=== PATIENT | male | born 1960 | race Caucasian/White ===

== ENCOUNTER 2016-08-13 18:29 | Emergency (ER) | payer BC ==
[~2016-08-13] VITALS: Ht 193 cm; Wt 159.1 kg
[~2016-08-13 18:29] MED LIST: CLEOCIN HCL150 MG PO; DOXYCYCLINE 10100 MG PO; FUROSEMIDE; PRILOSEC20 MG PO; SEPTRA DS 8001 TAB PO; ZESTRIL10 MG PO
[2016-08-13 18:39] VITALS: BP 143/78; TEMP 98.8
[2016-08-13] MEDS ORDERED: CELEBREX 200MG200 MG PO (18:45)
[2016-08-13 20:06] LABS: BASO % 0.2 % (0.0-2.0); EOS % 0.3 % (0-4.0); GRAN # 9.6 (1.4-6.5); GRAN % 86.4 % (42.2-75.2); HEMATOCRIT 40.8 % (42.0-52.0); LYMPH # 0.9 (1.2-3.4); LYMPH % 7.9 % (20.0-51.0); MEAN CELL VOLUME 81 fl (80.0-100.0); MEAN CORPUSCULAR HEMOGLOBIN 26 pg (27.0-31.0); MEAN CORPUSCULAR HGB CONC 32 g/dl (33.0-37.0); MEAN PLATELET VOLUME 11.2 fl (7.4-10.4); MONO # 0.5 (0.1-0.6); MONO % 4.7 % (1.7-9.3); PLATELET COUNT 168 K/mm3 (130-400); RED BLOOD COUNT 5.07 M/mm3 (4.20-5.60); REDCELL DISTRIBUTION WIDTH-CV 15.7 % (11.5-14.5); WHITE BLOOD COUNT 11.2 K/mm3 (4.8-10.8)
[2016-08-13 20:19] LABS: PH 6 (5-8); SQUAMOUS EPITHELIAL None Seen /hpf; URINE APPEARANCE Hazy; URINE BACTERIA None Seen /hpf; URINE BILIRUBIN Negative (NEGATIVE); URINE BLOOD Negative (NEGATIVE); URINE COLOR Yellow; URINE GLUCOSE Negative (NEGATIVE); URINE KETONE Negative (NEGATIVE); URINE RBC 0-2 /hpf; URINE UROBILINOGEN Negative (NEGATIVE); URINE WBC 0-2 /hpf
[2016-08-13 20:21] LABS: ADJUSTED CALCIUM 8.6 mg/dL (8.4-10.2); BILIRUBIN,TOTAL 1.7 mg/dL (0.0-1.0); C-REACTIVE PROTEIN 3.2 mg/dL (0.0-0.9); CALCIUM 8.6 mg/dL (8.4-10.2); CREATININE, serum 1.07 mg/dL (0.66-1.25); TOTAL PROTEIN 7.9 gm/dL (6.4-8.2)
[2016-08-13 20:43] LABS: ERYTHROCYTE SEDIMENTATION RATE 16 mm/hr (0-30)
[2016-08-13 20:49] LABS: INFLUENZA B NEGATIVE
[2016-08-13] MEDS ORDERED: NORCO 325 MG-51 TAB PO (21:31)
[2016-08-13 22:32] VITALS: PULSE 65
== END 2016-08-13 22:45 | disposition home or self-care (01) ==
LOC: COL.ER 18:29
PROVIDERS: Emergency Medicine
DX: M54.5 Low back pain (principal); G89.29 Other chronic pain
CPT/HCPCS: J1885

== ENCOUNTER 2016-08-15 13:19 | Emergency (ER) | payer BC ==
[~2016-08-15] VITALS: Ht 193 cm; Wt 159.1 kg
[~2016-08-15 13:19] MED LIST changes: +CELEBREX 200MG200 MG PO; +NORCO 325 MG-51 TAB PO
[2016-08-15 13:23] VITALS: TEMP 98.4
[2016-08-15] MEDS ORDERED: AMOXICILLIN 8751 TAB PO (14:33)
[2016-08-15 14:37] VITALS: BP 142/92; PULSE 74
== END 2016-08-15 14:37 | disposition home or self-care (01) ==
LOC: COL.ER 13:19
DX: J02.0 Streptococcal pharyngitis (principal)

== ENCOUNTER 2016-09-03 07:22 | Day surgery (SDC) | payer BC ==
[~2016-09-03] VITALS: Ht 193 cm; Wt 173.6 kg
[~2016-09-03 07:22] MED LIST changes: -CALCIUM 600-D 61 TAB PO; -LASIX 40MG TABL40 MG PO; -VISION VITAMINS1 TA1 PO
[2016-09-03 07:57] VITALS: BP 161/96; PULSE 71; TEMP 98.8
[2016-09-03] MEDS ORDERED: LASIX 40MG TABL40 MG PO (08:05)
[2016-09-03] MEDS ORDERED: VISION VITAMINS1 TA1 PO (08:06)
[2016-09-03] MEDS ORDERED: CALCIUM 600-D 61 TAB PO (08:07)
[2016-09-03 08:58] VITALS: BP 153/102; PULSE 69; TEMP 98
[2016-09-03 09:13] VITALS: BP 151/98; PULSE 65
[2016-09-03 09:28] VITALS: BP 154/99; PULSE 65
== END 2016-09-03 09:40 | disposition home or self-care (01) ==
LOC: SDCO 07:22
DX: K21.9 Gastro-esophageal reflux disease without esophagitis (principal); K30 Functional dyspepsia; I10 Essential (primary) hypertension; E66.01 Morbid (severe) obesity due to excess calories; K76.0 Fatty (change of) liver, not elsewhere classified; R16.1 Splenomegaly, not elsewhere classified
CPT/HCPCS: J2250; J3010; J7030

== ENCOUNTER → 2016-09-03 | Outpatient (CLI) | payer BC ==
[~2016-09-03] MED LIST changes: +AMOXICILLIN 8751 TAB PO; +CALCIUM 600-D 61 TAB PO; +LASIX 40MG TABL40 MG PO; +VISION VITAMINS1 TA1 PO
[2016-09-15 08:46] LABS: TISSUE TRANSGLU IGA 1.6 (()); TISSUE TRANSGLU IGG 1.4 (())
== END ==
LOC: COL.LAB 10:49
PROVIDERS: Internal Medicine
DX: R14.0 Abdominal distension (gaseous) (principal)

== ENCOUNTER → 2016-09-07 | Outpatient (CLI) | payer BC ==
[~2016-09-07] MED LIST changes: +CALCIUM 600-D 61 TAB PO; +LASIX 40MG TABL40 MG PO; +VISION VITAMINS1 TA1 PO
== END ==
LOC: COL.RAD 10:20
DX: M79.1 Myalgia (principal)